=== PATIENT | male | born 1970 | race African-American/Black ===

== ENCOUNTER 2017-05-03 10:30 | Emergency (ER) | payer OTHER ==
--- NOTE | 2017-05-03 10:47 | ED.PDOC ---
History of Present Illness - General Chief Complaint: Upper Extremity Injury Stated Complaint: laceration to palm of RH Time Seen by Provider: 05/03/17 10:44 Source: patient, RN notes reviewed, Vital Signs reviewed Exam Limitations: no limitations - History of Present Illness Initial Comments: Patient comes in with a laceration of his right palm. He was at work moving some steel plates when they fell and landed on his right hand. Occurred: just prior to arrival Pain - Upper Extremity: severe: Hand, right Method of Injury: direct blow, incised Improving Factors: rest Worsening Factors: movement Allergies/Adverse Reactions: Allergies NO KNOWN ALLERGY Allergy (Verified 05/03/17 10:47) Review of Systems - Review of Systems Constitutional: States: no symptoms reported Respiratory: States: no symptoms reported Cardiology: States: no symptoms reported Musculoskeletal: States: see HPI Skin: States: see HPI Neurological: States: no symptoms reported. Denies: numbness, paresthesia, tingling, weakness All other Systems: No Change from Baseline Past Medical History (General) - Patient Medical History Hx Seizures: No Hx Stroke: No Hx Dementia: No Hx Asthma: No Hx of COPD: No Hx Cardiac Disorders: No Hx Congestive Heart Failure: No Hx Pacemaker: No Hx Hypertension: No Hx Thyroid Disease: No Hx Diabetes: No Hx Gastroesophageal Reflux: No Hx Renal Disease: No Hx Cancer: No Hx of HIV: No Hx Hepatitis C: No Hx MRSA: No - Vaccination History Hx Influenza Vaccination: No - Social History Hx Tobacco Use: Yes Hx Alcohol Use: No Hx Substance Use: No Hx Substance Use Treatment: No Hx Depression: No Family Medical History - Family History Mother Family History: No Known Physical Exam - Physical Exam General Appearance: Alert, Comfortable, No apparent distress, Well Developed, Well Groomed, Well Hydrated, Well Nourished Cardiovascular/Respiratory: normal peripheral pulses - brisk capillary refill L hand Wrist Exam: normal inspection, non-tender, no evidence of injury, normal ROM Hand Exam: bone tenderness - over distal 3-5th metacarpals, laceration - 5cm, linear, limited ROM - due to pain, soft tissue tenderness Neuro/Tendon: normal sensation, normal motor functions, normal tendon functions , responds to pain, no evidence tendon injury Mental Status: alert, oriented x 3, depressed affect Comments: Vital Signs 05/03/17 10:33 Temperature 98.2 F Pulse Rate [ 81 left brachial] Respiratory 24 Rate Blood Pressure 161/95 [left brachial] Progress - EKG/XRAY/CT XRAY: hand - No fractures per Rad Procedures - Laceration/Wound Repair Right Volar Hand Wound Length (cm): 5 - across distal palm Wound's Depth, Shape: superficial, linear Wound Explored: foreign body removed - few small pieces of steel removed Irrigated w/ Saline (cc's): 100 - Soaked in hibiclens and scrubbed with saline Anesthesia: Lidocaine w/ Epi Volume Anesthetic (cc's): 6 Wound Debrided: minimal Wound Repaired With: sutures Suture Size/Type: 4:0, prolene Number of Sutures: 10 Layer Closure?: No Sterile Dressing Applied?: Yes Splint Applied?: No Sling Applied?: No Departure - Departure Clinical Impression: Laceration of right palm without complication Qualifiers: Encounter type: initial encounter Qualified Code(s): S61.411A - Laceration without foreign body of right hand, initial encounter Time of Disposition: 12:21 Disposition: Discharge to Home or Self Care Condition: Good Departure Forms: ED Discharge - Pt. Copy, Patient Portal Self Enrollment Instructions: DI for Laceration Repair -- Simple Diet: resume usual diet Activity: increase activity as tolerated Additional Instructions: Keep wound dry X 48 hours Keep clean and apply antibiotic ointment twice daily Suture removal in 7-10 days
[2017-05-03 10:55] VITALS: TEMP 98.2
[2017-05-03] MEDS ORDERED: MORPHINE SULFATE INJ 10 MG/ML VIAL IM ONE (10:57)
[2017-05-03] MEDS ORDERED: CHLORHEXIDINE GLUCONATE 4 % 15 ML UD TOP ONE (11:07)
[2017-05-03] MEDS ORDERED: LIDOCAINE 1% W/ EPINEPHRINE 20 ML VIAL INJ ONE (11:10)
--- NOTE | 2017-05-03 11:10 | RAD ---
EXAM DESCRIPTION: Right hand, 3 views CLINICAL HISTORY: . Trauma with pain. Steel plates fell on hand FINDINGS/ IMPRESSION: Soft tissue swelling. Air in the soft tissues suggests laceration along the palm and the dorsum of the hand at the level of the metacarpal phalangeal joints between the ring and middle finger. There are a few tiny radiopaque metallic density foreign bodies in the soft tissues in this same region There is no fracture. No traumatic osteochondral lesion identified No advanced osteoarthritis or inflammatory arthritis Electronically signed by: Shaun Hastings MD 05/03/2017 11:09 AM CDT
[2017-05-03] MEDS ORDERED: LIDOCAINE 2% W/ EPINEPHRINE 20 ML VIAL INJ ONE (11:11)
[2017-05-03] MEDS ORDERED: TETANUS,DIPHTHERIA,PERTUSSIS 1 EA SYG IM ONE (11:26)
[2017-05-03] MEDS ORDERED: NEOMYCIN-BACITRACIN-POLYMYXIN 0.9 GM UD TOP ONE (12:17)
[2017-05-03 12:35] VITALS: BP 154/95; O2SAT 96
== END 2017-05-03 12:45 | disposition home or self-care (01) ==
LOC: ER 10:30
DX: S61.411A Laceration without foreign body of right hand, initial encounter (principal); Z23 Encounter for immunization; Z87.891 Personal history of nicotine dependence; W20.8XXA Other cause of strike by thrown, projected or falling object, initial encounter; Y92.89 Other specified places as the place of occurrence of the external cause; Y99.0 Civilian activity done for income or pay
CPT/HCPCS: 73130; 80301; 90471; 90715; J2270

== ENCOUNTER 2017-09-11 11:53 | Emergency (ER) | payer SELFPAY ==
--- NOTE | 2017-09-11 12:51 | ED.PDOC ---
History of Present Illness - General Chief Complaint: General Stated Complaint: left ankle pain Time Seen by Provider: 09/11/17 12:09 Source: patient, Vital Signs reviewed Exam Limitations: no limitations - History of Present Illness Timing/Duration: other - 3 days Improving Factors: immobilization Worsening Factors: movement Associated Symptoms: denies symptoms Allergies/Adverse Reactions: Allergies NO KNOWN ALLERGY Allergy (Verified 09/11/17 12:46) Home Medications: Ambulatory Orders Indomethacin 50 mg PO TID #20 cap 09/11/17 Review of Systems - Review of Systems Constitutional: Denies: chills, fever EENTM: Denies: nose congestion, throat pain Respiratory: Denies: cough, short of breath Cardiology: Denies: chest pain, palpitations Gastrointestinal/Abdominal: Denies: abdominal pain, diarrhea, nausea Genitourinary: Denies: dysuria, frequency Musculoskeletal: States: joint pain, joint swelling Skin: States: other - redness of L ankle Neurological: Denies: numbness, paresthesia Endocrine: Denies: no symptoms reported Hematologic/Lymphatic: Denies: no symptoms reported Past Medical History (General) - Patient Medical History Hx Seizures: No Hx Stroke: No Hx Dementia: No Hx Asthma: No Hx of COPD: No Hx Cardiac Disorders: No Hx Congestive Heart Failure: No Hx Pacemaker: No Hx Hypertension: No Hx Thyroid Disease: No Hx Diabetes: No Hx Gastroesophageal Reflux: No Hx Renal Disease: No Hx Cancer: No Hx of HIV: No Hx Hepatitis C: No Hx MRSA: No Hx Other PMH: Yes - Gout Surgical History: other - Vaccination History Hx Tetanus, Diphtheria Vaccination: No Hx Influenza Vaccination: No Hx Pneumococcal Vaccination: No - Social History Hx Tobacco Use: Yes Hx Alcohol Use: Yes - occasional Hx Substance Use: No Hx Substance Use Treatment: No Hx Depression: No Family Medical History - Family History Mother Family History: No Known Physical Exam - Physical Exam General Appearance: Alert, Comfortable Eye Exam: bilateral normal Ears, Nose, Throat: hearing grossly normal, normal ENT inspection Neck: full range of motion, supple Respiratory: normal breath sounds, no respiratory distress Cardiovascular/Chest: normal peripheral pulses, no edema Extremity: inflammation, swelling, other - L ankle with redness , 2+ edema, tenderness, and decreased ROM Neurologic: alert, normal mood/affect, oriented x 3 Skin Exam: normal color Departure - Departure Clinical Impression: Gout attack Disposition: Discharge to Home or Self Care Departure Forms: ED Discharge - Pt. Copy, Patient Portal Self Enrollment Referrals: Natali Villareal NP [Primary Care Provider] - 1-2 Weeks Prescriptions: Indomethacin 50 mg PO TID #20 cap Home Medications: Ambulatory Orders Indomethacin 50 mg PO TID #20 cap 09/11/17
--- NOTE | 2017-09-11 13:07 | RAD ---
EXAM DESCRIPTION: Left ankle, 3 views CLINICAL HISTORY: Ankle pain. No trauma FINDINGS/ IMPRESSION: No fracture. Ankle mortise is symmetric. Tibiotalar marginal osteophytes. Intra-articular loose body along the posterior joint line measures about 7-8 mm. Faint lucency in the lateral apex of the talar dome likely cystic change related to chronic osteochondral lesion measuring about 9 mm transverse, not well seen on the frontal radiograph Mild soft tissue swelling. Large well-corticated plantar calcaneal spur Electronically signed by: Shaun Hastings MD 09/11/2017 1:06 PM [facility]
[2017-09-11 13:44] VITALS: BP 138/68; TEMP 97.8; O2SAT 97
== END 2017-09-11 13:44 | disposition home or self-care (01) ==
LOC: ER 11:53
DX: M10.9 Gout, unspecified (principal)